=== PATIENT | female | born 1975 | race American Indian/Alaskan Native ===

== ENCOUNTER 2017-03-13 05:25 | Emergency (ER) | payer MEDICAID ==
[2017-03-13 06:50] LABS: Bilirubin,Urine NEG (Negative); Blood,Urine SM (Negative); Ketones,Urine NEG (Negative); Leukocyte Esterase,Urine NEG (Negative); Mucus,Urine FEW /HPF; Nitrite,Urine NEG (Negative); Protein,Urine <15 mg/dL mg/dL (Negative); Urobilinogen,Urine < 2.0 mg/dL (<2.0)
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
[2017-03-13] MEDS ORDERED: NORCO 5/325 PO ONE (07:02)
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
[2017-03-13] MEDS ORDERED: FLEXERIL PO ONE (08:20)
[2017-03-13 08:53] VITALS: BP 148/83
--- NOTE | 2017-03-13 09:37 | XRay Report ---
RIGHT KNEE, 3 views: History: Pain. The bony architecture is intact without evidence of fracture or dislocation. No significant soft tissue abnormality is seen. Moderate osteoarthritic changes. IMPRESSION: Osteoarthritis. No acute process.
--- NOTE | 2017-03-13 09:38 | XRay Report ---
LEFT RIBS, 3 VIEWS: History: pain. Routine views of the rib cage demonstrate normal mineralization with no significant contour abnormalities, fractures or destructive lesions. PA view of the chest demonstrates no underlying cardiopulmonary abnormalities, fluid or pneumothorax. IMPRESSION: Unremarkable left rib series.
== END 2017-03-13 10:12 | disposition home or self-care (01) ==
LOC: ED 05:25
DX: S20.222A Contusion of left back wall of thorax, initial encounter (principal); M79.1 Myalgia; I10 Essential (primary) hypertension; W18.30XA Fall on same level, unspecified, initial encounter; Y93.9 Activity, unspecified; Y92.9 Unspecified place or not applicable; Y99.9 Unspecified external cause status
CPT/HCPCS: 81001; 81025; 99284

== ENCOUNTER 2018-06-12 00:10 | Emergency (ER) | payer OTHER, MEDICAID ==
[2018-06-12 00:26] VITALS: BP 152/93
[2018-06-12] MEDS ORDERED: TORADOL IM ONE (01:10)
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
== END 2018-06-12 02:50 | disposition home or self-care (01) ==
LOC: ED 00:10
DX: S46.911A Strain of unspecified muscle, fascia and tendon at shoulder and upper arm level, right arm, initial encounter (principal); I10 Essential (primary) hypertension; Z88.6 Allergy status to analgesic agent; V89.2XXA Person injured in unspecified motor-vehicle accident, traffic, initial encounter; Y93.89 Activity, other specified; Y92.488 Other paved roadways as the place of occurrence of the external cause; Y99.8 Other external cause status
CPT/HCPCS: 73030; 96372; 99283; J1885

== ENCOUNTER 2018-12-11 02:15 | Emergency (ER) | payer MEDICAID, OTHER ==
[2018-12-11 02:25] VITALS: BP 137/87
[2018-12-11] MEDS ORDERED: TYLENOL PO ONE (04:40)
[2018-12-11] MEDS ORDERED: REGLAN PO ONE (04:40)
[2018-12-11] MEDS ORDERED: IBUPROFEN PO ONE (04:40)
[2018-12-11] MEDS ORDERED: CLEOCIN PO ONE (04:40)
[2018-12-11] MEDS ORDERED: DECADRON IM ONE (04:40)
--- NOTE | 2018-12-11 04:52 | Emergency Department Report ---
ED Headache HPI - General Chief Complaint: Headache Stated Complaint: HEADACHE AND SINUS PRESSURE Time Seen by Provider: 12/11/18 03:51 - History of Present Illness Initial Comments: 43-year-old -[place] female who presents for sinus headache 6/10 sharp frontal and maxillary pain exacerbated by movement and position , pain relieved by nothting pt states noc fever no fever at this time there is yellow post nasal drip bilat ear pain and sore throat, . Quality: moderate Head Injury Location: frontal Recent Head Trauma: occasional headaches Modifying Factors: improves with: movement Associated Symptoms: facial pain, fever/chills, nasal congestion, nasal drainage, sinus infection. denies: nausea/vomiting Allergies/Adverse Reactions: Allergies morphine Allergy (Verified 05/29/13 00:25) Swelling Home Medications: Ambulatory Orders Hydrocodone Bit/Acetaminophen [Lortab 5-500 Tablet] 1 - 2 each PO Q6H PRN #20 tablet 05/29/13 Bisacodyl [Dulcolax] 10 mg PO DAILY PRN #30 tab 01/26/16 HYDROcodone/APAP 5-325 [[place] 5/325] 1 each PO Q6HR PRN #10 tablet 01/26/16 Hydrocortisone/Lidocaine/Aloe [Lidocaine-Hc 3-2.5% Gel Kit] 1 each RC Q12H #1 kit 01/26/16 Metaxalone [Skelaxin] 800 mg PO TID PRN #15 tablet 08/10/16 traMADol [Ultram] 50 mg PO Q6HR PRN #20 tablet 08/10/16 Acetaminophen/Codeine [Tylenol /Codeine # 3 tab] 1 tab PO Q6H PRN #20 tab 03/13/17 Cyclobenzaprine [Flexeril] 10 mg PO QHS PRN #24 tablet 03/13/17 Ibuprofen [Motrin 800 MG tab] 800 mg PO TID #30 tablet 06/12/18 Clindamycin [Clindamycin CAP] 300 mg PO Q6H 10 Days #40 capsule 12/11/18 Metoclopramide [Reglan] 10 mg PO Q6H PRN #30 tablet 12/11/18 diphenhydrAMINE [Benadryl CAP] 25 mg PO Q6HR PRN #30 capsule 12/11/18 predniSONE [Deltasone] 40 mg PO QDAY 10 Days #20 tab 12/11/18 ED Review of Systems ROS: Stated complaint: HEADACHE AND SINUS PRESSURE Other details as noted in HPI Constitutional: denies: chills, fever Eyes: denies: eye pain, eye discharge, vision change ENT: ear pain, throat pain Respiratory: denies: cough, shortness of breath, wheezing Cardiovascular: denies: chest pain, palpitations Endocrine: no symptoms reported Gastrointestinal: denies: abdominal pain, nausea, vomiting, diarrhea Genitourinary: denies: dysuria, discharge Musculoskeletal: denies: back pain, joint swelling, arthralgia Skin: denies: rash, lesions Neurological: denies: headache, weakness, paresthesias Psychiatric: denies: anxiety, depression Hematological/Lymphatic: denies: easy bleeding, easy bruising ED Past Medical Hx - Past Medical History Previous Medical History?: Yes Hx Hypertension: Yes Additional medical history: hemorrhoids - Surgical History Past Surgical History?: Yes Additional Surgical History: Rt knee sx - Social History Smoking Status: Never Smoker Substance Use Type: None - Medications Home Medications: Home Medications Medication Instructions Recorded Confirmed Last Taken Type Hydrocodone Bit/Acetaminophen 1 - 2 each PO Q6H PRN #20 tablet 05/29/13 Unknown Rx [Lortab 5-500 Tablet] Bisacodyl [Dulcolax] 10 mg PO DAILY PRN #30 tab 01/26/16 Unknown Rx HYDROcodone/APAP 5-325 [[place] 1 each PO Q6HR PRN #10 tablet 01/26/16 Unknown Rx 5/325] Hydrocortisone/Lidocaine/Aloe 1 each RC Q12H #1 kit 01/26/16 Unknown Rx [Lidocaine-Hc 3-2.5% Gel Kit] Metaxalone [Skelaxin] 800 mg PO TID PRN #15 tablet 08/10/16 Unknown Rx traMADol [Ultram] 50 mg PO Q6HR PRN #20 tablet 08/10/16 Unknown Rx Acetaminophen/Codeine [Tylenol 1 tab PO Q6H PRN #20 tab 03/13/17 Unknown Rx /Codeine # 3 tab] Cyclobenzaprine [Flexeril] 10 mg PO QHS PRN #24 tablet 03/13/17 Unknown Rx Ibuprofen [Motrin 800 MG tab] 800 mg PO TID #30 tablet 06/12/18 Unknown Rx Clindamycin [Clindamycin CAP] 300 mg PO Q6H 10 Days #40 capsule 12/11/18 Unknown Rx Metoclopramide [Reglan] 10 mg PO Q6H PRN #30 tablet 12/11/18 Unknown Rx diphenhydrAMINE [Benadryl CAP] 25 mg PO Q6HR PRN #30 capsule 12/11/18 Unknown Rx predniSONE [Deltasone] 40 mg PO QDAY 10 Days #20 tab 12/11/18 Unknown Rx ED Physical Exam - General Limitations: No Limitations General appearance: alert, in no apparent distress - Head Head exam: Present: atraumatic, normocephalic, normal inspection - Eye Eye exam: Present: normal appearance, PERRL, EOMI Pupils: Present: normal accommodation - Expanded ENT Exam Expanded Ear exam: Present: normal external inspection, other (bilat maxillary sinue pain to palpation no swelling no echymosis no stepoff ) TM/Canal exam: Erythema: Left TM, Canal Tenderness: Left TM Mouth exam: Absent: trismus Throat exam: Positive: normal inspection, tonsillar erythema, tonsillomegaly. Negative: tonsillar exudate, R peritonsillar mass, L peritonsillar mass - Neck Neck exam: Present: normal inspection, full ROM, lymphadenopathy. Absent: tenderness, meningismus, thyromegaly - Respiratory Respiratory exam: Present: normal lung sounds bilaterally. Absent: respiratory distress, wheezes, rhonchi, stridor, chest wall tenderness - Cardiovascular Cardiovascular Exam: Present: regular rate, normal rhythm, normal heart sounds. Absent: systolic murmur, diastolic murmur, rubs, gallop - GI/Abdominal GI/Abdominal exam: Present: soft, normal bowel sounds. Absent: distended, guarding, rebound, bruit, hernia - Rectal Rectal exam: Present: deferred - Extremities Exam Extremities exam: Present: normal inspection, full ROM, normal capillary refill. Absent: tenderness, pedal edema, joint swelling - Back Exam Back exam: Present: normal inspection, full ROM. Absent: tenderness, muscle spasm, rash noted - Neurological Exam Neurological exam: Present: alert, oriented X3, CN II-XII intact, normal gait, reflexes normal - Psychiatric Psychiatric exam: Present: normal affect, normal mood - Skin Skin exam: Present: warm, dry, intact, normal color. Absent: rash ED Course Vital Signs 12/11/18 02:23 Temperature 97.5 F L Pulse Rate 87 Respiratory 18 Rate Blood Pressure 137/87 O2 Sat by Pulse 99 Oximetry ED Medical Decision Making - Medical Decision Making this is Sinusitis will treat with clindamycin po , ibuprfofen, benadary, reglan, pt will follow up with pcp in 2-3 days pt verbalized agreement understanding of same pt for dc to home in stable condition at this time. Critical care attestation.: If time is entered above; I have spent that time in minutes in the direct care of this critically ill patient, excluding procedure time. ED Disposition Clinical Impression: Sinus headache Sinusitis Qualifiers: Sinusitis location: maxillary Chronicity: acute Recurrence: non-recurrent Qualified Code(s): J01.00 - Acute maxillary sinusitis, unspecified Disposition: DC-01 TO HOME OR SELFCARE Is pt being admited?: No Does the pt Need Aspirin: No Condition: Stable Instructions: Acute Headache (ED), Sinusitis (ED) Prescriptions: diphenhydrAMINE [Benadryl CAP] 25 mg PO Q6HR PRN #30 capsule PRN Reason: Headache Clindamycin [Clindamycin CAP] 300 mg PO Q6H 10 Days #40 capsule predniSONE [Deltasone] 40 mg PO QDAY 10 Days #20 tab Metoclopramide [Reglan] 10 mg PO Q6H PRN #30 tablet PRN Reason: Headache Referrals: LIZANDRO SILVESTRE MD [Primary Care Provider] - 3-5 Days Forms: Work/School Release Form(ED) Time of Disposition: 05:19
== END 2018-12-11 05:20 | disposition home or self-care (01) ==
LOC: ED 02:15
DX: J01.00 Acute maxillary sinusitis, unspecified (principal); I10 Essential (primary) hypertension
CPT/HCPCS: 96372; 99282; J1100

== ENCOUNTER 2020-05-15 23:16 | Emergency (ER) | payer MEDICAID ==
[2020-05-16 00:42] LABS: Amphetamine Screen,Urine PRESUMPTIVE NEGATIVE; Benzodiazepines Screen,Urine PRESUMPTIVE NEGATIVE; Cannabinoid Screen,Urine PRESUMPTIVE POSITIVE; Cocaine Screen,Urine PRESUMPTIVE NEGATIVE; Methadone Screen,Urine PRESUMPTIVE NEGATIVE; Opiate Screen,Urine PRESUMPTIVE NEGATIVE
[2020-05-16 00:43] LABS: Bilirubin,Urine NEG (Negative); Blood,Urine NEG (Negative); Color,Urine Amber (Yellow); Mucus,Urine 2+ /HPF
[2020-05-16 00:47] LABS: Basophils # (Auto) 0.1 K/mm3 (0.0-0.1); Basophils % (Auto) 0.5 % (0.0-1.8); Eosinophils # (Auto) 0.1 K/mm3 (0.0-0.4); Eosinophils % (Auto) 0.7 % (0.0-4.3); Hematocrit 33.5 % (30.3-42.9); Lymphocytes # (Auto) 3.3 K/mm3 (1.2-5.4); Lymphocytes % (Auto) 26.6 % (13.4-35.0); Mean Corpuscular HGB Conc 33 % (30-34); Mean Corpuscular Volume 74 fl (79-97); Monocytes # (Auto) 0.5 K/mm3 (0.0-0.8); Monocytes % (Auto) 4.2 % (0.0-7.3); Platelet Count 500 K/mm3 (140-440); Red Blood Count 4.51 M/mm3 (3.65-5.03); Red Cell Distribution Width 18.6 % (13.2-15.2)
[2020-05-16 01:48] VITALS: BP 139/62
[2020-05-16] MEDS ORDERED: KETOROLAC 30 MG/1 ML INJ IM ONE (02:18)
[2020-05-16] MEDS ORDERED: LOPERAMIDE 2 MG CAP PO ONE (02:26)
[2020-05-16] MEDS ORDERED: POTASSIUM CHLORIDE ER 20 MEQ TAB PO ONE (02:26)
--- NOTE | 2020-05-16 02:26 | Emergency Department Report ---
ED General Adult HPI - General Chief complaint: Pain General Stated complaint: WITHDRAWAL, POSS SINUS INFECTION Time Seen by Provider: 05/16/20 02:07 Source: patient Mode of arrival: Ambulatory Limitations: No Limitations - History of Present Illness Initial comments: 44-year-old female presents to ED requesting detox. Patient reports she has been abusing Percocet for the last 4 months. Patient states she has been taking 6 pills daily. Patient reports she attempted to stop 2 days ago, but began experiencing withdrawal symptoms of cold chills, diarrhea, body aches. Patient reports she had to take 1 Percocet on yesterday to help with the withdrawal symptoms. -: days(s) (2) Severity scale (0 -10): 10 Quality: aching Consistency: constant Improves with: other (percocet) Worsens with: none Treatments Prior to Arrival: none - Related Data Previous Rx's Medication Instructions Recorded Last Taken Type Hydrocodone Bit/Acetaminophen 1 - 2 each PO Q6H PRN #20 tablet 05/29/13 Unknown Rx [Lortab 5-500 Tablet] HYDROcodone/APAP 5-325 [[place] 1 each PO Q6HR PRN #10 tablet 01/26/16 Unknown Rx 5/325] Hydrocortisone/Lidocaine/Aloe 1 each RC Q12H #1 kit 01/26/16 Unknown Rx [Lidocaine-Hc 3-2.5% Gel Kit] bisacodyL [Dulcolax] 10 mg PO DAILY PRN #30 tab 01/26/16 Unknown Rx Metaxalone [Skelaxin] 800 mg PO TID PRN #15 tablet 08/10/16 Unknown Rx traMADoL [Ultram] 50 mg PO Q6HR PRN #20 tablet 08/10/16 Unknown Rx Acetaminophen/Codeine [Tylenol 1 tab PO Q6H PRN #20 tab 03/13/17 Unknown Rx /Codeine # 3 tab] Cyclobenzaprine [Flexeril] 10 mg PO QHS PRN #24 tablet 03/13/17 Unknown Rx Ibuprofen [Motrin 800 MG tab] 800 mg PO TID #30 tablet 06/12/18 Unknown Rx Clindamycin [Clindamycin CAP] 300 mg PO Q6H 10 Days #40 capsule 12/11/18 Unknown Rx Metoclopramide [Reglan] 10 mg PO Q6H PRN #30 tablet 12/11/18 Unknown Rx diphenhydrAMINE [Benadryl CAP] 25 mg PO Q6HR PRN #30 capsule 12/11/18 Unknown Rx predniSONE [Deltasone] 40 mg PO QDAY 10 Days #20 tab 12/11/18 Unknown Rx Benzonatate [Tessalon Perles] 100 mg PO Q8HR #30 capsule 01/10/20 Unknown Rx Butalb/Acetamin/Caff 50-325-40 2 tab PO Q6HR PRN #15 tab 01/10/20 Unknown Rx [Fioricet 50-325-40] Clindamycin [Clindamycin CAP] 300 mg PO Q6HR #80 capsule 01/10/20 Unknown Rx Ketorolac [Toradol] 10 mg PO Q8H PRN #20 tablet 01/10/20 Unknown Rx NIFEdipine [Nifedipine ER] 60 mg PO DAILY #30 tab.er.24 01/10/20 Unknown Rx methylPREDNISolone [Medrol 4MG 4 mg PO DAILY #21 tab.ds.pk 01/10/20 Unknown Rx DOSEPAK (21 tabs)] Naproxen [Naprosyn] 500 mg PO BID #20 tablet 05/16/20 Unknown Rx Ondansetron [Zofran Odt] 4 mg PO Q8HR PRN #20 tab.rapdis 05/16/20 Unknown Rx Allergies Allergy/AdvReac Type Severity Reaction Status Date / Time morphine Allergy Swelling Verified 05/29/13 00:25 ED Review of Systems ROS: Stated complaint: WITHDRAWAL, POSS SINUS INFECTION Other details as noted in HPI Comment: All other systems reviewed and negative Constitutional: chills ENT: other (Denies loss of smell or taste) Gastrointestinal: diarrhea. denies: nausea, vomiting Musculoskeletal: myalgia Psychiatric: denies: homicidal thoughts, suicidal thoughts ED Past Medical Hx - Past Medical History Previous Medical History?: Yes Hx Hypertension: Yes Additional medical history: hemorrhoids - Surgical History Past Surgical History?: Yes Additional Surgical History: Rt knee sx - Social History Smoking Status: Never Smoker Substance Use Type: Other - Medications Home Medications: Home Medications Medication Instructions Recorded Confirmed Last Taken Type Hydrocodone Bit/Acetaminophen 1 - 2 each PO Q6H PRN #20 tablet 05/29/13 Unknown Rx [Lortab 5-500 Tablet] HYDROcodone/APAP 5-325 [[place] 1 each PO Q6HR PRN #10 tablet 01/26/16 Unknown Rx 5/325] Hydrocortisone/Lidocaine/Aloe 1 each RC Q12H #1 kit 01/26/16 Unknown Rx [Lidocaine-Hc 3-2.5% Gel Kit] bisacodyL [Dulcolax] 10 mg PO DAILY PRN #30 tab 01/26/16 Unknown Rx Metaxalone [Skelaxin] 800 mg PO TID PRN #15 tablet 08/10/16 Unknown Rx traMADoL [Ultram] 50 mg PO Q6HR PRN #20 tablet 08/10/16 Unknown Rx Acetaminophen/Codeine [Tylenol 1 tab PO Q6H PRN #20 tab 03/13/17 Unknown Rx /Codeine # 3 tab] Cyclobenzaprine [Flexeril] 10 mg PO QHS PRN #24 tablet 03/13/17 Unknown Rx Ibuprofen [Motrin 800 MG tab] 800 mg PO TID #30 tablet 06/12/18 Unknown Rx Clindamycin [Clindamycin CAP] 300 mg PO Q6H 10 Days #40 capsule 12/11/18 Unknown Rx Metoclopramide [Reglan] 10 mg PO Q6H PRN #30 tablet 12/11/18 Unknown Rx diphenhydrAMINE [Benadryl CAP] 25 mg PO Q6HR PRN #30 capsule 12/11/18 Unknown Rx predniSONE [Deltasone] 40 mg PO QDAY 10 Days #20 tab 12/11/18 Unknown Rx Benzonatate [Tessalon Perles] 100 mg PO Q8HR #30 capsule 01/10/20 Unknown Rx Butalb/Acetamin/Caff 50-325-40 2 tab PO Q6HR PRN #15 tab 01/10/20 Unknown Rx [Fioricet 50-325-40] Clindamycin [Clindamycin CAP] 300 mg PO Q6HR #80 capsule 01/10/20 Unknown Rx Ketorolac [Toradol] 10 mg PO Q8H PRN #20 tablet 01/10/20 Unknown Rx NIFEdipine [Nifedipine ER] 60 mg PO DAILY #30 tab.er.24 01/10/20 Unknown Rx methylPREDNISolone [Medrol 4MG 4 mg PO DAILY #21 tab.ds.pk 01/10/20 Unknown Rx DOSEPAK (21 tabs)] Naproxen [Naprosyn] 500 mg PO BID #20 tablet 05/16/20 Unknown Rx Ondansetron [Zofran Odt] 4 mg PO Q8HR PRN #20 tab.rapdis 05/16/20 Unknown Rx ED Physical Exam - General Limitations: No Limitations General appearance: alert, in no apparent distress - Head Head exam: Present: atraumatic, normocephalic - Eye Eye exam: Present: normal appearance, EOMI - ENT ENT exam: Present: mucous membranes moist - Neck Neck exam: Present: normal inspection - Respiratory Respiratory exam: Present: normal lung sounds bilaterally. Absent: respiratory distress - Cardiovascular Cardiovascular Exam: Present: regular rate, normal rhythm - GI/Abdominal GI/Abdominal exam: Present: soft. Absent: distended, tenderness - Extremities Exam Extremities exam: Present: normal inspection - Neurological Exam Neurological exam: Present: alert, oriented X3 - Psychiatric Psychiatric exam: Present: normal affect, normal mood - Skin Skin exam: Present: warm, dry, intact, normal color ED Course Vital Signs 05/15/20 05/16/20 23:46 01:47 Temperature 97.8 F 97.8 F Pulse Rate 84 78 Respiratory 20 20 Rate Blood Pressure 130/82 139/62 [Left] O2 Sat by Pulse 100 99 Oximetry ED Medical Decision Making - Lab Data Result diagrams: 05/16/20 Unknown 05/15/20 23:55 - Medical Decision Making 44-year-old female presents to ED for opiate withdrawals. Patient will be treated symptomatically. She has been given outpatient resources for substance abuse programs. She will be discharged at this time. Outpatient follow-up advised, return precautions given. - Differential Diagnosis Opiate withdrawal, substance abuse Critical care attestation.: If time is entered above; I have spent that time in minutes in the direct care of this critically ill patient, excluding procedure time. ED Disposition Clinical Impression: Opiate withdrawal, Opiate dependence, Hypokalemia Disposition: DC-01 TO HOME OR SELFCARE Is pt being admited?: No Condition: Stable Instructions: Hypokalemia (ED), Narcotic Abuse (ED), Opioid Withdrawal (ED) Additional Instructions: You may take [id number] Imodium for diarrhea. Take as instructed on pac kaging. Prescriptions: Naproxen [Naprosyn] 500 mg PO BID #20 tablet Ondansetron [Zofran Odt] 4 mg PO Q8HR PRN #20 tab.rapdis PRN Reason: Vomiting Referrals: [facility] [Provider Group] - 3-5 Days PRIMARY CARE, [Primary Care Provider] - 3-5 Days Time of Disposition: 03:08
== END 2020-05-16 03:45 | disposition home or self-care (01) ==
LOC: ED 23:16
DX: F11.23 Opioid dependence with withdrawal (principal); F11.20 Opioid dependence, uncomplicated; E87.6 Hypokalemia; I10 Essential (primary) hypertension; Z88.6 Allergy status to analgesic agent; Z79.899 Other long term (current) drug therapy; Z98.890 Other specified postprocedural states
CPT/HCPCS: 36415; 80048; 80307; 81001; 84703; 85025; 87086; 96372; 99283; J1885; 80320; G0480